=== PATIENT | male | born 1970 | race Caucasian/White ===

== ENCOUNTER 2019-02-21 09:16 | Emergency (ER) | payer MEDICAID, OTHER ==
[2019-02-21 09:47] LABS: BILIRUBIN,URINE NEGATIVE (NEGATIVE); GLUCOSE, URINE (UA) NEGATIVE (NEGATIVE); KETONES,URINE (UA) NEGATIVE (NEGATIVE); LEUKOCYTE ESTERASE, URINE NEGATIVE (NEGATIVE); NITRITE,URINE NEGATIVE (NEGATIVE); OCCULT BLOOD,URINE MODERATE (NEGATIVE); PH,URINE 5.5 PH (5.0-7.5); PROTEIN,URINE 30 mg/dL (NEGATIVE); UROBILINOGEN,URINE 0.2 (NORMAL) E.U./dL (NORMAL)
[2019-02-21] MEDS ORDERED: PHENAZOPYRIDINE 100 MG TABLET PO STA (09:54)
[2019-02-21 09:55] LABS: BACTERIA,URINE Few /HPF (None Seen); CLARITY,URINE HAZY (CLEAR); MUCUS,URINE Few Strands; SQUAMOUS EPITHELIAL CELL,UR NONE SEEN (<= Few)
--- NOTE | 2019-02-21 09:56 | ED Physician Documentation ---
History of Present Illness - Stated complaint Stated Complaint: MALE - Chief complaint Chief Complaint: General - History obtained from History obtained from: Patient - History of Present Illness Timing: How many weeks ago (1) Pain level max: 7 Pain level now: 3 - Additonal information Additional information: 48-year-old male presents to the emergency department with burning and dysuria for the past week. Had a short episode of left flank pain a few days ago. No discharge from the penis. No changes in sexual partners. Worse with urination. Better with rest. Has had kidney stones in the past, states the left flank pain the other day felt similar but not as bad. Review of Systems Constitutional: denies: Fever, Chills Cardiac: denies: Chest pain / pressure Respiratory: denies: Cough GI: denies: Nausea, Vomiting : reports: Dysuria, Frequency, Hesitancy Skin: denies: Rash Musculoskeletal: denies: Neck pain, Back pain Neurologic: denies: Headache PD PAST MEDICAL HISTORY - Past Medical History Past Medical History: Yes : Kidney stones - Past Surgical History Past Surgical History: No - Present Medications Home Medications: Ambulatory Orders Medication Instructions Recorded Confirmed Cephalexin [Keflex] 500 mg PO Q6H #28 capsule 02/21/19 Hydrocodone/Acetaminophen 1 - 2 each PO Q6H PRN #14 tablet 02/21/19 [Hydrocodon-Acetaminophen 5-325] Ibuprofen [Motrin] 800 mg PO Q8H PRN #30 tablet 02/21/19 - Allergies Allergies/Adverse Reactions: Allergies Allergy/AdvReac Type Severity Reaction Status Date / Time No Known Drug Allergies Allergy Verified 02/21/19 09:28 - Social History Does the pt smoke?: No Smoking Status: Never smoker Does the pt drink ETOH?: No Does the pt have substance abuse?: No PD ED PE NORMAL - Vitals Vital signs reviewed: Yes - General General: Alert and oriented X 3, No acute distress - HEENT HEENT: Moist mucous membranes - Neck Neck: Supple, no meningeal sign - Cardiac Cardiac: RRR - Respiratory Respiratory: No respiratory distress, Clear bilaterally - Abdomen Abdomen: Soft, Non tender, Non distended - Rectal Rectal: Pt declined - Back Back: No CVA TTP, No spinal TTP - Derm Derm: Warm and dry - Neuro Neuro: Alert and oriented X 3 - Psych Psych: Normal mood, Normal affect Results - Vitals Vitals: Oxygen O2 Source Room air - Labs Labs: Laboratory Tests 02/21/19 02/21/19 02/21/19 09:41 10:28 10:28 WBC 7.2 RBC 4.74 Hgb 14.5 Hct 42.8 MCV 90.3 MCH 30.6 MCHC 33.9 RDW 12.2 Plt Count 308 MPV 8.9 Neut # (Auto) 4.8 Lymph # (Auto) 1.8 Lares # (Auto) 0.4 Eos # (Auto) 0.1 Baso # (Auto) 0.0 Absolute Nucleated RBC 0.00 Nucleated RBC % 0.0 Sodium 140 Potassium 4.0 Chloride 105 Carbon Dioxide 27 Anion Gap 8.0 BUN 14 Creatinine 0.7 Estimated GFR (MDRD) 119 Glucose 124 H Calcium 9.5 Total Bilirubin 1.1 H AST 42 ALT 58 Alkaline Phosphatase 54 Total Protein 8.0 Albumin 4.5 Globulin 3.5 Albumin/Globulin Ratio 1.3 Lipase 34 Urine Color DARK YELLOW Urine Clarity HAZY Urine pH 5.5 Ur Specific [place] >=1.030 H Urine Protein 30 H Urine Glucose (UA) NEGATIVE Urine Ketones NEGATIVE Urine Occult Blood MODERATE H Urine Nitrite NEGATIVE Urine Bilirubin NEGATIVE Urine Urobilinogen 0.2 (NORMAL) Ur Leukocyte Esterase NEGATIVE Urine RBC 6-10 H Urine WBC 0-3 Ur Squamous Epith Cells NONE SEEN Urine Bacteria Few Urine Mucus Few Strands Ur Microscopic Review INDICATED Urine Culture Comments NOT INDICATED - Rads (name of study) CT abd/pelvis Radiology: Prelim report reviewed, EMP read contemporaneously, See rad report (1. Contrast is seen within the collecting systems bilaterally from a prior contrast study. 2. Possible adjacent 2 mm and 3 mm distal left ureter nonobstructing stones (image 18 series 3). ) PD MEDICAL DECISION MAKING - ED course Complexity details: reviewed results, re-evaluated patient, considered differential, d/w patient ED course: Patient with what appears to be left-sided ureteral stones. Nonobstructing. Has had UTI symptoms, will cover with antibiotics as he does have stones in place. He is well-appearing, nontoxic. Afebrile. No evidence of sepsis. Agusto velez counseled regarding signs and symptoms for which I believe and urgent re- evaluation would be necessary. Patient with good understanding of and agreement to plan and is comfortable going home at this time This document was made in part using voice recognition software. While efforts are made to proofread this document, sound alike and grammatical errors may occur. Departure - Departure Disposition: 01 Home, Self Care Clinical Impression: Ureteral calculus, left Condition: Good Instructions: ED Stone Renal W Colic Follow-Up: your,doctor in 1 week [Other] Prescriptions: Cephalexin [Keflex] 500 mg PO Q6H #28 capsule Hydrocodone/Acetaminophen [Hydrocodon-Acetaminophen 5-325] 1 - 2 each PO Q6H PRN #14 tablet PRN Reason: pain Ibuprofen [Motrin] 800 mg PO Q8H PRN #30 tablet PRN Reason: PAIN &/OR FEVER Comments: Return if you worsen. Follow up with your doctor for further care. You may have 2 small kidney stones in your distal ureter. These should pass. Do not drink alcohol or drive while on narcotic pain medicine. Note that many narcotic pain relievers also contain tylenol/acetaminophen. Please ensure that your total dose of acetaminophen from all sources does not exceed 3 grams (3000mg) per day. You may constipated on this medication, take a stool softener such as "Colace" twice a day while you are on it. Also recommend a gmax-[id number]-[id number] laxative such as senna or MiraLAX any day that you do not have a bowel movement. If you received narcotic pain medication in the emergency department, do not drive or operate machinery for the next 24 hours. Discharge Date/Time: 02/21/19 13:20
[2019-02-21 10:37] LABS: BASOPHILS % (AUTO) 0.6 %; EOSINOPHILS # (AUTO) 0.1 10^3/uL (0.0-0.7); EOSINOPHILS % (AUTO) 1.8 %; HGB - HEMOGLOBIN 14.5 g/dL (14.0-18.0); LYMPHOCYTES # (AUTO) 1.8 10^3/uL (1.5-3.5); LYMPHOCYTES % (AUTO) 25.5 %; MEAN CORPUSCULAR HEMOGLOBIN 30.6 pg (27.0-31.0); MEAN CORPUSCULAR HGB CONC 33.9 g/dL (32.0-36.0); MEAN CORPUSCULAR VOLUME 90.3 fL (80.0-94.0); MEAN PLATELET VOLUME 8.9 fL (7.4-11.4); MONOCYTES # (AUTO) 0.4 10^3/uL (0.0-1.0); MONOCYTES % (AUTO) 5.4 %; NEUTROPHILS # (AUTO) 4.8 10^3/uL (1.5-6.6); NEUTROPHILS % (AUTO) 66.4 %; PLT - PLATELET COUNT 308 10^3/uL (130-450); RED BLOOD COUNT 4.74 10^6/uL (4.70-6.10); RED CELL DISTRIBUTION WIDTH 12.2 % (12.0-15.0); WHITE BLOOD COUNT 7.2 x10^3/uL (4.8-10.8)
[2019-02-21] MEDS ORDERED: IOVERSOL 320 100 ML VIAL IVP ONE ×2 (10:37→12:50)
[2019-02-21 10:51] LABS: ALBUMIN 4.5 g/dL (3.2-5.5); ALBUMIN/GLOBULIN RATIO 1.3 (1.0-2.2); BILIRUBIN,TOTAL 1.1 mg/dL (0.2-1.0); CALCIUM 9.5 mg/dL (8.5-10.3); CREATININE 0.7 mg/dL (0.6-1.2)
--- NOTE | 2019-02-21 12:58 | CT Report ---
Reason: abd pain Procedure Date: 02/21/2019 Accession Number: [id number] / [id number] Procedure: CT - Abdomen/Pelvis WO CPT Code: Final Report FULL RESULT: EXAM: CT ABDOMEN AND PELVIS (CT KUB) EXAM DATE: 02/21/2019 12:21 PM. CLINICAL HISTORY: Abdominal pain. Left groin pain. History of kidney stones. COMPARISONS: ABDOMEN/PELVIS W/O 03/01/2015 2:01 PM. TECHNIQUE: Routine axial helical CT imaging was performed through the abdomen and pelvis without IV contrast. Reconstructions: Coronal and sagittal. In accordance with CT protocol optimization, one or more of the following dose reduction techniques were utilized for this exam: automated exposure control, adjustment of mA and/or KV based on patient size, or use of iterative reconstructive technique. FINDINGS: Lung Bases: Unremarkable. Right Kidney/Ureter: Right collecting system contrast. Negative for distal right ureter contrast. Negative for distal right hydroureter. Negative for right hydronephrosis. Negative for right kidney calyceal stone. Left Kidney/Ureter: Left kidney collecting system contrast. Negative for left hydronephrosis. Large left kidney pelvis 1.[address] KUB without contrast 03/01/2015 is no longer identified. Diffuse contrast opacification left ureter. Mild left hydroureter. Wall thickening distal left ureter. Possible 2 adjacent 2 mm and 3 mm distal left ureter stones. Other Solid Organs: Fatty infiltration of the liver. Focal sparing from fatty infiltration medial segment left liver lobe adjacent to the gallbladder. Gallbladder/Bile Ducts: Unremarkable. Peritoneal Cavity: Appendix is normal. Terminal ileum is unremarkable. There is no CT evidence for diverticulitis. Pelvic Organs: Dependent bladder contrast. Negative for bladder stone or filling defect. Vasculature: Unremarkable. Other: Posterior 3 mm disk protrusion osteophyte complex L5-S1. Posterior right paracentral 3 mm disk protrusion osteophyte complex L4-L5 with mild spinal canal stenosis and mild right lateral recess stenosis. IMPRESSION: 1. Contrast is seen within the collecting systems bilaterally from a prior contrast study. 2. Possible adjacent 2 mm and 3 mm distal left ureter nonobstructing stones (image 18 series 3). [facility]
[2019-02-21 13:17] VITALS: BP 135/84
== END 2019-02-21 13:20 | disposition home or self-care (01) ==
LOC: ED 09:16
DX: N20.1 Calculus of ureter (principal)
CPT/HCPCS: 36415; 74176; 80053; 81001; 83690; 85025; 99283; 99284; A9270; Q9967; 81003; 87086

== ENCOUNTER 2023-03-26 18:11 | Emergency (ER) | payer OTHER ==
[2023-03-26] MEDS ORDERED: HYDROmorphone 1 MG/ML CARPUJECT IVP STA (18:35)
[2023-03-26] MEDS ORDERED: LIDOCAINE-MPF 2% 5 ML in SODIUM CHLORIDE 0.9% 50 ML IV STA (18:36)
[2023-03-26 19:03] LABS: BASOPHILS % (AUTO) 0.3 %; HCT - HEMATOCRIT 44.7 % (42.0-52.0); LYMPHOCYTES # (AUTO) 0.9 10^3/uL (1.5-3.5); MEAN CORPUSCULAR HEMOGLOBIN 29.9 pg (27.0-31.0); MEAN CORPUSCULAR HGB CONC 33.6 g/dL (32.0-36.0); MEAN PLATELET VOLUME 8.9 fL (7.4-11.4); MONOCYTES # (AUTO) 0.2 10^3/uL (0.0-1.0); MONOCYTES % (AUTO) 1.1 %; NEUTROPHILS % (AUTO) 92.1 %; PLT - PLATELET COUNT 343 10^3/uL (130-450); RED BLOOD COUNT 5.02 10^6/uL (4.70-6.10); RED CELL DISTRIBUTION WIDTH 11.9 % (12.0-15.0); WHITE BLOOD COUNT 15.1 x10^3/uL (4.8-10.8)
[2023-03-26 19:19] LABS: ALBUMIN 4.7 g/dL (3.2-5.5); ALBUMIN/GLOBULIN RATIO 1.5 (1.0-2.2); BILIRUBIN,TOTAL 0.5 mg/dL (0.2-1.0); CALCIUM 10.1 mg/dL (8.5-10.3); CREATININE 0.9 mg/dL (0.6-1.3); TOTAL PROTEIN 7.9 g/dL (6.4-8.9)
--- NOTE | 2023-03-26 20:15 | ED Physician Documentation ---
History of Present Illness - Stated complaint Stated Complaint: POST OP SIDE PX - Chief complaint Chief Complaint: Abd Pain - History obtained from History obtained from: Patient, Family - History of Present Illness Timing: Today Pain level max: 8 Pain level now: 8 - Additonal information Additional information: 52-year-old male status post shockwave lithotripsy today. He states that when he got home he had emesis x 1 and now has generalized abdominal pain. Unable to keep his oxycodone down. He called his urologist, Dr. Troncoso who recommended he come in for evaluation. No fevers. No chills. Nothing makes it better or worse. He states the pain is "all over". Review of Systems Constitutional: denies: Fever, Chills Respiratory: denies: Dyspnea, Cough GI: reports: Vomiting (X 1). denies: Hematemesis, Bloody / black stool : denies: Dysuria PD PAST MEDICAL HISTORY - Past Medical History Cardiovascular: None Respiratory: None Endocrine/Autoimmune: None GI: None : Kidney stones HEENT: None Psych: None Musculoskeletal: None Derm: None - Past Surgical History Past Surgical History: No - Present Medications Home Medications: Ambulatory Orders Medication Instructions Recorded Confirmed Hydrocodone/Acetaminophen 1 - 2 each PO Q6H PRN #14 tablet 02/21/19 03/26/23 [Hydrocodon-Acetaminophen 5-325] Docusate Sodium 100Mg Capsule 100 mg PO DAILY #14 cap 03/26/23 [Colace 100Mg Capsule] Tamsulosin [Flomax] 0.4 mg PO DAILY #14 cap 03/26/23 oxyCODONE [Roxicodone] 5 mg PO Q4H PRN #15 tablet 03/26/23 - Allergies Allergies/Adverse Reactions: Allergies Allergy/AdvReac Type Severity Reaction Status Date / Time No Known Drug Allergies Allergy Verified 03/26/23 18:13 - Social History Does the pt smoke?: No Smoking Status: Never smoker Does the pt drink ETOH?: No Does the pt have substance abuse?: No - Immunizations Immunizations: TDAP >10years/unknown PD ED PE NORMAL - Vitals Vital signs reviewed: Yes - General General: Alert and oriented X 3, No acute distress - HEENT HEENT: Moist mucous membranes - Neck Neck: Supple, no meningeal sign - Cardiac Cardiac: RRR - Respiratory Respiratory: No respiratory distress, Clear bilaterally - Abdomen Abdomen: Soft, Non distended, Other (Mild diffuse tenderness to palpation. No peritoneal signs) - Back Back: No CVA TTP, No spinal TTP - Derm Derm: Warm and dry - Extremities Extremities: No edema - Neuro Neuro: Alert and oriented X 3 Results - Vitals Vitals: Vital Signs - 24 hr 03/26/23 03/26/23 03/26/23 18:14 20:12 21:53 Temperature 36.5 C 36.7 C Heart Rate 90 73 72 Respiratory 16 20 16 Rate Blood Pressure 148/90 H 134/85 H 125/76 O2 Saturation 99 100 94 Oxygen O2 Source Room air - Labs Labs: Laboratory Tests 03/26/23 03/26/23 18:57 18:57 WBC 15.1 H RBC 5.02 Hgb 15.0 Hct 44.7 MCV 89.0 MCH 29.9 MCHC 33.6 RDW 11.9 L Plt Count 343 MPV 8.9 Neut # (Auto) 14.0 H Lymph # (Auto) 0.9 L [place] # (Auto) 0.2 Eos # (Auto) 0.0 Baso # (Auto) 0.0 Absolute Nucleated RBC 0.00 Nucleated RBC % 0.0 Sodium 138 Potassium 4.0 Chloride 100 L Carbon Dioxide 27 Anion Gap 11.0 BUN 13 Creatinine 0.9 Estimated GFR (MDRD) 88 L Glucose 166 H Calcium 10.1 Total Bilirubin 0.5 AST 18 ALT 22 Alkaline Phosphatase 74 Total Protein 7.9 Albumin 4.7 Globulin 3.2 Albumin/Globulin Ratio 1.5 Lipase 47 PD Medical Decision Making - ED course Complexity details: reviewed results, re-evaluated patient, considered differential, d/w patient, d/w business transformation consultant ED course: Patient with abdominal pain status post lithotripsy today. No ureteral stents were placed. He was given a dose of Dilaudid as well as IV lidocaine here. His pain resolved. Tolerating p.o. well. He has oxycodone at home for pain. I discussed the case with Dr. Troncoso, patient's urologist who recommended CT scan. CT scan looks consistent with post lithotripsy. The patient's pain is well- controlled. He feels comfortable going home at this time. He will follow-up with urology as scheduled. He will return if he worsens. Patient counseled regarding signs and symptoms for which I believe and urgent re-evaluation would be necessary. Patient with good understanding of and agreement to plan and is comfortable going home at this time This document was made in part using voice recognition software. While efforts are made to proofread this document, sound alike and grammatical errors may occur. Departure - Departure Disposition: 01 Home, Self Care Clinical Impression: Ureteral stone Condition: Good Instructions: Lithotripsy Shock Wave, ED Stone Renal W Colic Follow-Up: Agustin Troncoso MD [Provider Admit Priv/Credential] - Comments: Continue your current medications as prescribed at home. Please follow-up with Dr. Troncoso as scheduled for further care. Please return if you worsen. Make sure you are drinking plenty of water at home. Forms: PCP List
[2023-03-26] MEDS ORDERED: iohexoL-300 100 ML VIAL IVP ONE (21:26)
[2023-03-26] MEDS ORDERED: oxyCODONE 5 MG TABLET PO STA (21:35)
--- NOTE | 2023-03-26 22:09 | CT Report ---
PROCEDURE: ABDOMEN/PELVIS W INDICATIONS: diffuse abd pain s/p eswl CONTRAST: 100mL Omni 300 TECHNIQUE: After the administration of intravenous contrast, 5 mm thick sections acquired from the diaphragms to the symphysis. 5 mm thick coronal and sagittal reformats were acquired. For radiation dose reducti on, the following was used: automated exposure control, adjustment of mA and/or kV according to marisela ent size. COMPARISON: CT abdomen/pelvis 02/21/2019 FINDINGS: Image quality: Excellent. Lung bases and heart: Mild bibasilar atelectasis. Liver: No solid mass. Mild hepatic steatosis. Gallbladder and biliary tree: No radiopaque stones or wall thickening. No biliary dilation. Spleen: No splenomegaly. Pancreas: No pancreatic ductal dilation. Adrenals: No adrenal nodule. Kidneys and ureters: Linear calcified debris is seen in the distal right ureter extending into the ri ght posterior bladder. There is mild right hydroureteronephrosis and mild right perinephric fat stran ding. Mild left hydronephrosis is also seen at the hydroureter. Branching calculi are seen in the suzi al pelvises bilaterally at the ureteropelvic junctions. Bowel and peritoneum: No bowel distension. No pathologic free fluid. Lymph nodes: No central or retroperitoneal adenopathy. Vessels: No infrarenal aortic aneurysm. PELVIS Reproductive organs: Unremarkable. Bladder: No abnormal wall thickening, accounting for underdistension. Pelvic lymph nodes: No pelvic adenopathy by size criteria. Bones: No aggressive osseous abnormality. Other: No significant ventral or inguinal hernia. IMPRESSION: 1.Linear calcific debris versus multiple tiny calculi along the distal brachial ureter and right post erior bladder surrounding the ureteropelvic junction. Mild right hydroureter and right perinephric fa t stranding. 2.Branching calcifications are seen in the renal pelvises bilaterally at the ureteropelvic junctions. Mild bilateral hydronephrosis. 3.Mild hepatic steatosis. Reviewed by: Jose Shultz MD on 03/26/2023 10:07 PM PST Approved by: Jose Shultz MD on 03/26/2023 10:07 PM PST Station ID: [id number]
[2023-03-26 22:30] VITALS: BP 137/74; O2SAT 100
== END 2023-03-26 22:22 | disposition home or self-care (01) ==
LOC: ED 18:11
DX: N13.2 Hydronephrosis with renal and ureteral calculous obstruction (principal)
CPT/HCPCS: 36415; 80053; 83690; 85025; 96365; 96375; 99284

== ENCOUNTER 2023-04-05 08:00 | Outpatient (CLI) | payer OTHER ==
--- NOTE | 2023-04-05 19:06 | XRAY Report ---
PROCEDURE: Abdomen 1 View (KUB) INDICATIONS: KIDNEY STONES TECHNIQUE: AP view of the abdomen/pelvis COMPARISON: CT abdomen and pelvis on March 26, 2023. FINDINGS: Nonobstructive bowel gas pattern. Nephrolith projecting over the left flank measuring 1 cm. Multiple right-sided nephroliths are better seen on CT dated March 26, 2023. Osseous structures are intact. Slight dextroconvex curvature of the lumbar spine. IMPRESSION: Nephrolith projecting over the left flank measuring 1 cm. Multiple right-sided nephroliths are better seen on CT dated March 26, 2023. Reviewed by: Eduar Chaudhary MD on 04/05/2023 7:05 PM PST Approved by: Eduar Chaudhary MD on 04/05/2023 7:05 PM PST Station ID: [id number]
== END 2023-04-05 23:59 | disposition home or self-care (01) ==
LOC: DI.WOS 08:00
PROVIDERS: ATTEND Urology
DX: N20.0 Calculus of kidney (principal)
CPT/HCPCS: 82365

== ENCOUNTER 2023-04-05 08:00 | Outpatient (CLI) | payer OTHER | END 2023-04-05 08:01 | disposition home or self-care (01) | LOC: LAB.R 08:00 | PROVIDERS: ATTEND Urology | DX: N20.0 Calculus of kidney (principal) | CPT/HCPCS: 82365 ==

== ENCOUNTER 2023-05-16 08:00 | Outpatient (CLI) | payer BC, OTHER ==
--- NOTE | 2023-05-18 19:43 | XRAY Report ---
PROCEDURE: Abdomen 1 View (KUB) INDICATIONS: KIDNEY STONES TECHNIQUE: Single view of the abdomen was acquired. COMPARISON: 04/05/2023 FINDINGS: There is a nonobstructing left-sided kidney stone measuring 11 mm. Distal demonstrates a different co nfiguration than on the prior plain film. The bowel gas pattern is nonobstructive. No significant bony abnormality seen for age, although note is made of minimal to mild dextroconvex s coliotic curvature. IMPRESSION: Nonobstructive left-sided kidney stone again seen. Reviewed by: Roberto Oliveira MD on 05/18/2023 6:42 PM AKST Approved by: Roberto Oliveira MD on 05/18/2023 6:42 PM [place] Station ID: [id number]
== END 2023-05-16 23:59 | disposition home or self-care (01) ==
LOC: DI.WOS 08:00
PROVIDERS: ATTEND Urology
DX: N20.0 Calculus of kidney (principal)

== ENCOUNTER 2023-05-21 06:29 | Day surgery (SDC) | payer OTHER ==
[~2023-05-21 06:29] MED LIST: ceFAZolin 2 GM VIAL ONE
[2023-05-21] MEDS ORDERED: LACTATED RINGERS 1,000 ML IV ONE ×3 (06:30→09:30)
[2023-05-21] MEDS ORDERED: HYDROmorphone 0.5 MG/0.5 ML SYRINGE IVP PRN (06:54)
[2023-05-21] MEDS ORDERED: NALOXONE 0.4 MG/ML VIAL IVP PRN (06:54)
[2023-05-21] MEDS ORDERED: ePHEDrine 50 MG/ML VIAL IVP PRN (06:54)
[2023-05-21] MEDS ORDERED: fentaNYL 100 MCG/2 ML VIAL IVP PRN (06:54)
[2023-05-21] MEDS ORDERED: ONDANSETRON 4 MG/2 ML VIAL IVP PRN ×2 (06:54→08:37)
[2023-05-21] MEDS ORDERED: METOCLOPRAMIDE 10 MG/2 ML VIAL IVP PRN (06:54)
[2023-05-21] MEDS ORDERED: MORPHINE 2 MG/ML CARPUJECT IVP PRN (06:54)
[2023-05-21] MEDS ORDERED: ATROPINE ABBOJECT 1 MG/10 ML SYRINGE IVP PRN (06:54)
--- NOTE | 2023-05-21 06:54 | ANESTHESIA ---
Pre-Anesthesia VS, & Labs - Diagnosis L kidney stone - Procedure L laser litho, stent, ureteroscopy Vital Signs: Temp Pulse Resp BP Pulse Ox O2 Flow Rate 36.3 C L 71 16 139/87 H 98 05/21/23 06:34 05/21/23 06:34 05/21/23 06:34 05/21/23 06:34 05/21/23 06:34 Height: 5 ft 4 in Weight (kg): 75.6 kg Body Mass Index: 28.5 BMI Classification: Overweight - NPO >8 hours - Lab Results Lab results reviewed: Yes Home Medications and Allergies Allergies/Adverse Reactions: Allergies Allergy/AdvReac Type Severity Reaction Status Date / Time No Known Drug Allergies Allergy Verified 03/26/23 18:13 Anes History & Medical History - Anesthetic History Anesthesia Complications: reports: No previous complications Family history of Anesthesia Complications: Denies Family history of Malignant Hyperthermia: Denies - Medical History Cardiovascular: reports: None Pulmonary: reports: None Gastrointestinal: reports: None Urinary: reports: Kidney stones Musculoskeletal: reports: None Endocrine/Autoimmune: reports: None Skin: reports: None Smoking Status: Never smoker - Surgical History Urologic: reports: Kidney stents, Ureterolithotomy (stones) Exam General: Alert, Oriented x3, Cooperative Dental: WNL Mouth Openin Fingerbreadth Neck Mobility: Normal Mallampati classification: II Thyromental Distance: less than 4 cm Respiratory: Lungs clear, Normal breath sounds, No respiratory distress Cardiovascular: Regular rate Neurological: Normal speech Mental/Cognitive Status: Alert/Oriented X3, Normal for patient Cognitive Status: Within normal limits Plan Anesthesia Type: General Consent for Procedure(s) Verified and Reviewed: Yes Code Status: Attempt Resuscitation ASA classification: 1-Healthy patient Is this case an emergency?: No
[2023-05-21] MEDS ORDERED: LACTATED RINGERS 1,000 ML IV SCH (07:00)
[2023-05-21] MEDS ORDERED: fentaNYL 100 MCG/2 ML VIAL ONE (07:07)
[2023-05-21] MEDS ORDERED: LIDOCAINE-PF 2% 10 ML AMP SUBQ ONE (07:07)
[2023-05-21] MEDS ORDERED: PROPOFOL 200 MG/20 ML VIAL IVP ONE ×2 (07:07→08:07)
[2023-05-21] MEDS ORDERED: MIDAZOLAM 2 MG/2 ML VIAL ONE (07:07)
[2023-05-21] MEDS ORDERED: LIDOCAINE 2% URO-JET 5 ML SYRINGE UR ONE (07:26)
[2023-05-21] MEDS ORDERED: DEXAMETHASONE 4 MG/ML VIAL ONE (07:44)
[2023-05-21] MEDS ORDERED: ONDANSETRON 4 MG/2 ML VIAL ONE (07:44)
[2023-05-21] MEDS ORDERED: KETOROLAC 30 MG/ML VIAL ONE (08:20)
[2023-05-21] MEDS ORDERED: HYDROcod/ACETAM 5/325 MG TABLET PO PRN (08:37)
--- NOTE | 2023-05-21 08:44 | Discharge Plan ---
Discharge Plan Problem Reviewed?: Yes Disposition: Home, Self Care Condition: Good Prescriptions: Docusate Sodium 100Mg Capsule [Colace 100Mg Capsule] 100 mg PO DAILY #7 cap cephALEXin [Keflex] 500 mg PO ONCE #1 cap HYDROcod/ACETAM 5/325 [[place] 5/325] 1 tab PO Q4H PRN #10 tablet PRN Reason: Pain Diet: Regular Activity Restrictions: No Restrictions Shower Restrictions: No Driving Restrictions: No Instruction Topics: Stents Ureteral Additional Instructions or Follow Up instructions: You will be contacted for follow-up in 1 week's time for cystoscopy and stent removal. This will be performed in the office. You do not have to stop eating before this appointment. He can take your normal medications. You can drive yourself to and from this appointment. Please take antibiotic as prescribed on the way to that appointment No Smoking: If you smoke, Please STOP! Call for help. Follow-up with: Rhett Olsen MD [Primary Care Provider] -
--- NOTE | 2023-05-21 08:49 | OPERATIVE REPORT ---
Operative Report - General Procedure Date: 05/21/23 Planned Procedure: Cystoscopy, left ureteroscopy, laser lithotripsy, stent Pre-Op Diagnosis: Left renal stone Procedure Performed: Cystoscopy, left ureteral dilation, ureteroscopy, stone manipulation, laser lithotripsy, stent Post Op Diagnosis: Left renal stone, ureteral narrowing - Procedure Note Primary Surgeon: Aab Anesthesia Provider: JULIET Huggins Anesthesia Technique: General LMA Pathology: none Estimated Blood Loss (mL): 2 Indications: Left renal stone Findings: Narrow ureter required dilation from 8 Qatari to 14 Qatari 1.4 cm left lower pole stone which was radiopaque. Stone grasped and pushed to upper pole. Fragmented. Complications: none - Other Other Information/Narrative: After informed consent was obtained the patient was brought to the OR and laid in the supine position. At that point the patient was anesthetized per anesthesia protocols. He was prepped and draped in the usual sterile fashion in the dorsolithotomy position. A formal timeout was performed reconfirming the patient, procedure and laterality. Retail Brand Ambassador imaging confirmed a 1.4 cm lower pole left renal stone. A 22 Qatari cystoscope was advanced into the urinary bladder. He was noted to have a high riding bladder neck. The bladder mucosa otherwise was as not abnormal. Attention was paid to his left ureteral orifice which was orthotopic in nature. A sensor wire was placed this up into the kidney. A second wire was then placed as well. We attempted to place a ureteral access sheath but the ureter was too narrow and so we used a dual-lumen catheter which is about 8 Qatari to dilate the ureter. We then placed the 12 Qatari inner sheath. We then placed the 12 and 14 ureteral access sheath which was 36 cm. A flexible ureteroscope was advanced up into the kidney. The kidney was inspected and full and in the lower pole around a sharp corner was a large stone. We could not use a laser and reached this and so we used a 1.9 Qatari basket to grab the stone and then with some difficulty maneuver it up into the upper pole. We then used a 200 m laser fiber at a power of 1.0 and a rate of 8 to fragment the stone into dust. There were no radiopaque stones remaining after that point. The kidney and ureter were cleared under direct visualization. A 6 Qatari 26 cm double-J ureteral stent was placed with good curling noted in the kidney and good curling noted in the bladder. The bladder was emptied. A Uro-Jet was placed. All counts were correct. This concluded the procedure patient tolerated the procedure well was brought to PACU without further incident. He will follow-up in 1 week's time for cystoscopy and stent removal
--- NOTE | 2023-05-21 10:14 | ANESTHESIA POST OP EVALUATION ---
Anesthesia Post Eval - Post Anesthesia Eval Vitals: Last Vital Signs Temp 36.4 C L 05/21/23 09:09 Pulse 64 05/21/23 09:28 Resp 16 05/21/23 09:28 BP 137/75 H 05/21/23 09:28 Pulse Ox 98 05/21/23 09:28 O2 Flow Rate CV Function Including HR & BP: Stable Pain Control: Satisfactory Nausea & Vomiting: Negative Mental Status: Baseline Respiratory Status: Airway Patent Hydration Status: Satisfactory Anesthesia Complications: None
[2023-05-21 11:33] VITALS: BP 135/74; O2SAT 99
--- NOTE | 2023-05-21 19:45 | XRAY Report ---
PROCEDURE: OR C-Arm Procedure INDICATIONS: ureteroscopy; laser lithotripsy, stent placement FLUORO TIME: 0.3 TECHNIQUE: 2 intraoperative fluoroscopic images of left abdomen were obtained. COMPARISON: Abdominal radiograph dated 05/16/2023 and 04/05/2023 FINDINGS: Intraoperative fluoroscopic images shows guidewire placement in left ureter followed by left-sided ur eteral stent placement. IMPRESSION: Fluoroscopy guidance was provided intraoperatively for ureteroscopy, laser lithotripsy and stent plac ement performed by the ordering physician. Reviewed by: Reji Rivera MD on 05/21/2023 7:44 PM PST Approved by: Reji Rivera MD on 05/21/2023 7:44 PM PST Station ID: [id number]
== END 2023-05-21 06:30 | disposition home or self-care (01) ==
LOC: SDS 06:29
PROVIDERS: ATTEND Urology
DX: N20.0 Calculus of kidney (principal)
CPT/HCPCS: 52356; C1758; C2617; J7120

== ENCOUNTER 2023-08-27 10:30 | Outpatient (CLI) | payer BC ==
--- NOTE | 2023-08-27 16:58 | XRAY Report ---
PROCEDURE: Abdomen 1 V INDICATIONS: KIDNEY STONES TECHNIQUE: One view of the abdomen acquired. COMPARISON: Abdominal radiograph 05/16/2023. CT abdomen pelvis 03/26/2023. FINDINGS: Surgical changes and devices: None. Bowel: Bowel gas pattern is normal. Soft tissues: Previously seen in the left kidney stone is not identified. No suspicious abdominal ca lcifications. Visualized solid organ contours appear normal in size. Bones: No suspicious bony lesions. IMPRESSION: No kidney stone identified. If clinically indicated consider CT KUB. Reviewed by: Schuyler Lancaster MD on 08/27/2023 4:57 PM PDT Approved by: Schuyler Lancaster MD on 08/27/2023 4:57 PM PDT Station ID: [id number]
== END 2023-08-27 10:31 | disposition home or self-care (01) ==
LOC: DI 10:30
PROVIDERS: ATTEND Urology
DX: N20.0 Calculus of kidney (principal)